=== PATIENT | female | born 2000 | race Caucasian/White ===

== ENCOUNTER 2022-01-01 18:38 | Outpatient (CLI) | payer OTHER | END 2022-01-01 20:24 | disposition home or self-care (01) | LOC: GENOP 18:38 | DX: O47.03 False labor before 37 completed weeks of gestation, third trimester (principal); O36.0930 Maternal care for other rhesus isoimmunization, third trimester, not applicable or unspecified; O99.891 Other specified diseases and conditions complicating pregnancy; O99.343 Other mental disorders complicating pregnancy, third trimester; M54.50 Low back pain, unspecified; F43.10 Post-traumatic stress disorder, unspecified; F41.9 Anxiety disorder, unspecified; F32.A Depression, unspecified; Z3A.34 34 weeks gestation of pregnancy | CPT/HCPCS: 81001; 82731; G0463 ==

== ENCOUNTER 2022-01-31 09:04 | Inpatient (IN) | payer OTHER ==
[~2022-01-31] VITALS: Ht 167.6 cm; Wt 98.9 kg
[2022-01-31 10:20] LABS: HEMOGLOBIN 12.8 gm/dl (12.3-15.3); RED BLOOD COUNT 4.46 M/UL (4.00-5.10); WHITE BLOOD COUNT 15.3 K/UL (4.5-11.0)
[2022-01-31] MEDS ORDERED: TYLENOL EXTRA500 MG PO (15:25)
[2022-01-31] MEDS ORDERED: DOCUSATE SODIU250 MG PO (17:19)
[2022-01-31] MEDS ORDERED: IBUPROFEN600 MG PO (17:19)
[2022-02-01 03:16] LABS: HEMOGLOBIN 11.7 gm/dl (12.3-15.3)
== END 2022-02-01 19:07 | disposition home or self-care (01) | DRG 807 ==
LOC: GENOP 09:04 → OB 09:49
PROVIDERS: ADMIT Obstetrics & Gynecology
PROC: 10E0XZZ Delivery of Products of Conception, External Approach (ICD-10-PCS; principal; 2022-01-31)
PROC: 10907ZC Drainage of Amniotic Fluid, Therapeutic from Products of Conception, Via Natural or Artificial Opening (ICD-10-PCS; 2022-01-31)
PROC: 3E033VJ Introduction of Other Hormone into Peripheral Vein, Percutaneous Approach (ICD-10-PCS; 2022-01-31)
PROC: 10H07YZ Insertion of Other Device into Products of Conception, Via Natural or Artificial Opening (ICD-10-PCS; 2022-01-31)
PROC: 0HQ9XZZ Repair Perineum Skin, External Approach (ICD-10-PCS; 2022-01-31)
PROC: 4A1H7CZ Monitoring of Products of Conception, Cardiac Rate, Via Natural or Artificial Opening (ICD-10-PCS; 2022-01-31)
PROC: 10H073Z Insertion of Monitoring Electrode into Products of Conception, Via Natural or Artificial Opening (ICD-10-PCS; 2022-01-31)
PROC: 3E0234Z Introduction of Serum, Toxoid and Vaccine into Muscle, Percutaneous Approach (ICD-10-PCS; 2022-01-31)
DX: O99.344 Other mental disorders complicating childbirth (principal); Z37.0 Single live birth; Z3A.38 38 weeks gestation of pregnancy; F41.9 Anxiety disorder, unspecified; F43.10 Post-traumatic stress disorder, unspecified; Z20.822 Contact with and (suspected) exposure to COVID-19; F32.A Depression, unspecified; O70.0 First degree perineal laceration during delivery; Z82.49 Family history of ischemic heart disease and other diseases of the circulatory system; Z80.1 Family history of malignant neoplasm of trachea, bronchus and lung; Z81.8 Family history of other mental and behavioral disorders; Z80.8 Family history of malignant neoplasm of other organs or systems; Z83.49 Family history of other endocrine, nutritional and metabolic diseases; Z23 Encounter for immunization
CPT/HCPCS: 36415; 81001; 85014; 85018; 85025; 86900; 86901; 90715; J2590; J7120; U0002